=== PATIENT | female | born 1940 | race Caucasian/White ===

== ENCOUNTER → 2018-02-12 | Outpatient (CLI) | payer MEDICARE, BC ==
--- NOTE | 2018-02-13 12:04 | MM ---
Reason for exam: screening (asymptomatic). Last mammogram was performed 1 year and 7 months ago. History: Patient is postmenopausal. Physical Findings: A clinical breast exam by your physician is recommended on an annual basis and results should be correlated with mammographic findings. MG Screening Mammo w CAD Bilateral CC and MLO view(s) were taken. Prior study comparison: July 29, 2016, bilateral MG 3d screening mammo w/cad. July 13, 2015, bilateral MG screening mammo w CAD. There are scattered fibroglandular densities. No significant changes when compared with prior studies. ASSESSMENT: Benign, BI-RAD 2 RECOMMENDATION: Routine screening mammogram of both breasts in 1 year.
== END | disposition home or self-care (01) ==
LOC: RADMAMWWP 09:18
PROVIDERS: ATTEND General Practice
DX: Z12.31 Encounter for screening mammogram for malignant neoplasm of breast (principal)
CPT/HCPCS: 77067

== ENCOUNTER → 2019-03-25 | Outpatient (CLI) | payer MEDICARE, BC ==
--- NOTE | 2019-03-25 10:38 | BD ---
EXAMINATION TYPE: Axial Bone Density DATE OF EXAM: 03/25/2019 COMPARISON: 2014 CLINICAL HISTORY: Postmenopausal female Height: 62.5 Weight: 120 FRAX RISK QUESTIONS: Alcohol (3 or more units per day): no Family History (Parent hip fracture): yes, father Glucocorticoids (More than 3mos): no (Ex: prednisone, prednisolone, methylprednisolone, dexamethasone, and hydrocortisone). History of Fracture in Adulthood: no Secondary Osteoporosis: 1. Type 1 Diabetes: no 2. Hyperthyroidism: no 3. Menopause before 45: no 4. Malnutrition: no 5. Chronic liver disease: no Rheumatoid Arthritis: no Current Tobacco Use: no RISK FACTORS HISTORY OF: Family History of Osteoporosis: unsure Active: yes Diet low in dairy products/other sources of calcium: no Postmenopausal woman: yes Take estrogen and/or progesterone medications: no Lost more than 2 inches in height since high school: no Frequent falls: no Poor Health: no Hyperparathyroidism: no Adrenal Insufficiency: no MEDICATIONS: Prednisone or other steroids: no Thyroid Medications: yes Which medication: Synthroid How Long: about 10 years Osteoporosis Medications: no Which medication: Fosamax How Long: stopped about 2010 Additional Medications: calcium with Vitamin D Additional History: EXAM MEASUREMENTS: Bone mineral densitometry was performed using the [employer] System. Bone mineral density as measured about the Lumbar spine is: ----- L1-L4(G/cm2): 0.850 T Score Values are as follows: ----- L2: -3.2 ----- L3: -2.9 ----- L4: -2.5 ----- L1-L4: -2.7 Bone mineral density has: Decreased -8.1% since study of: 07/13/2015 Bone mineral density about the R hip (g/cm2): 0.691 Bone mineral density about the L hip (g/cm2): 0.681 T Score values are as follows: -----R Neck: -2.5 -----L Neck: -2.6 -----R Total: -2.8 -----L Total: -2.7 Bone mineral density has: Decreased -4.9% since study of: 07/13/2015 IMPRESSION: Osteoporosis (T Score less than -2.5). There is increased fracture risk and therapy is usually indicated based on age. Re-Screen 1-2 years. NOTE: T-SCORE=SD OF THE YOUNG ADULT MEAN.
--- NOTE | 2019-03-26 10:14 | MM ---
Reason for exam: screening (asymptomatic). Last mammogram was performed 1 year and 1 month ago. History: Patient is postmenopausal. Physical Findings: A clinical breast exam by your physician is recommended on an annual basis and results should be correlated with mammographic findings. MG 3D Screening Mammo W/Cad Bilateral CC and MLO view(s) were taken. Prior study comparison: February 12, 2018, bilateral MG screening mammo w CAD. July 29, 2016, bilateral MG 3d screening mammo w/cad. There are scattered fibroglandular densities. There are benign appearing round vascular calcifications bilaterally. There is no discrete abnormality. ASSESSMENT: Benign, BI-RAD 2 RECOMMENDATION: Routine screening mammogram of both breasts in 1 year.
== END | disposition home or self-care (01) ==
LOC: RADMAMWWP 07:06
PROVIDERS: ATTEND General Practice
DX: Z12.31 Encounter for screening mammogram for malignant neoplasm of breast (principal); M81.0 Age-related osteoporosis without current pathological fracture
CPT/HCPCS: 77063; 77067; 77080

== ENCOUNTER → 2020-06-11 | Outpatient (CLI) | payer MEDICARE, BC ==
--- NOTE | 2020-06-12 12:19 | MM ---
Reason for exam: screening (asymptomatic). Last mammogram was performed 1 year and 3 months ago. History: Patient is postmenopausal. Physical Findings: A clinical breast exam by your physician is recommended on an annual basis and results should be correlated with mammographic findings. MG 3D Screening Mammo W/Cad Bilateral CC and MLO view(s) were taken. Prior study comparison: March 25, 2019, bilateral MG 3d screening mammo w/cad. February 12, 2018, bilateral MG screening mammo w CAD. The breast tissue is heterogeneously dense. This may lower the sensitivity of mammography. There are benign appearing round vascular calcifications bilaterally. There is no discrete abnormality. ASSESSMENT: Benign, BI-RAD 2 RECOMMENDATION: Routine screening mammogram of both breasts in 1 year.
== END | disposition home or self-care (01) ==
LOC: RADMAMWWP 13:13
PROVIDERS: ATTEND General Practice
DX: Z12.31 Encounter for screening mammogram for malignant neoplasm of breast (principal)
CPT/HCPCS: 77063; 77067

== ENCOUNTER → 2021-06-15 | Outpatient (CLI) | payer MEDICARE, BC ==
--- NOTE | 2021-06-16 07:56 | MM ---
Reason for exam: screening (asymptomatic). Last mammogram was performed 1 year ago. History: Patient is postmenopausal. Physical Findings: A clinical breast exam by your physician is recommended on an annual basis and results should be correlated with mammographic findings. MG 3D Screening Mammo W/Cad Bilateral CC and MLO view(s) were taken. Prior study comparison: June 11, 2020, bilateral MG 3d screening mammo w/cad. March 25, 2019, bilateral MG 3d screening mammo w/cad. There are scattered fibroglandular densities. There are benign appearing round vascular calcifications bilaterally. There is no discrete abnormality. ASSESSMENT: Benign, BI-RAD 2 RECOMMENDATION: Routine screening mammogram of both breasts in 1 year.
== END | disposition home or self-care (01) ==
LOC: RADMAMWWP 10:57
PROVIDERS: ATTEND General Practice
DX: Z12.31 Encounter for screening mammogram for malignant neoplasm of breast (principal)
CPT/HCPCS: 77063; 77067

== ENCOUNTER → 2022-06-20 | Outpatient (CLI) | payer MEDICARE, BC ==
--- NOTE | 2022-06-20 10:33 | MM ---
Reason for Exam: Screening (asymptomatic). Last screening mammogram was performed 12 month(s) ago. Patient History: Menarche at age 16. First Full-Term at age 20. Postmenopausal. Risk Values: Kaylene 5 year model risk: 1.1%. NCI Lifetime model risk: 1.5%. Prior Study Comparison: 07/29/2016 Bilateral Screening Mammogram, [facility]. 02/12/2018 Bilateral Screening Mammogram, [facility]. 03/25/2019 Bilateral Screening Mammogram, [facility]. 06/11/2020 Bilateral Screening Mammogram, [facility]. 06/15/2021 Bilateral Screening Mammogram, [facility]. Tissue Density: There are scattered fibroglandular densities. Findings: Analyzed By CAD. No suspicious groups of microcalcifications, spiculated or lobular masses, architectural distortion or other secondary signs of malignancy are mammographically apparent. Overall Assessment: Benign, BI-RAD 2 Management: Screening Mammogram of both breasts in 1 year. A negative mammogram report should not preclude additional follow up of suspicious palpable abnormalities. Patient should continue monthly self breast exam. A clinical breast exam by your physician is recommended on an annual basis and results should be correlated with mammographic findings. Electronically signed and approved by: Jeovany Shen D.O. Radiologis
== END | disposition home or self-care (01) ==
LOC: RADMAMWWP 06:54
PROVIDERS: ATTEND Family Medicine
DX: Z12.31 Encounter for screening mammogram for malignant neoplasm of breast (principal)
CPT/HCPCS: 77063; 77067

== ENCOUNTER → 2023-06-21 | Outpatient (CLI) | payer MEDICARE, BC ==
--- NOTE | 2023-06-22 10:59 | MM ---
Reason for Exam: Screening (asymptomatic). Last screening mammogram was performed 12 month(s) ago. Patient History: Menarche at age 16. First Full-Term at age 20. Postmenopausal. Risk Values: Kaylene 5 year model risk: 1.0%. NCI Lifetime model risk: 1.4%. Prior Study Comparison: 06/11/2020 Bilateral Screening Mammogram, [facility]. 06/15/2021 Bilateral Screening Mammogram, [facility]. 06/20/2022 Bilateral MG 3D screening mammo w/cad, [facility]. Tissue Density: The breast tissue is heterogeneously dense. This may lower the sensitivity of mammography. Findings: Analyzed By CAD. There is no suspicious group of microcalcifications or new suspicious mass in either breast. Overall Assessment: Benign, BI-RAD 2 Management: Screening Mammogram of both breasts in 1 year. . Patient should continue monthly self-breast exams. A clinical breast exam by your physician is recommended on an annual basis. This exam should not preclude additional follow-up of suspicious palpable abnormalities. Note on Kaylene scores and lifetime risk: 1. A Kaylene score greater than 3% is considered moderate risk. If this is the case, consider specialist referral to assess eligibility for a risk reducing agent. 2. If overall lifetime risk for the development of breast cancer is 20% or higher, the patient may qualify for future screening with alternating mammogram and breast MRI. Electronically signed and approved by: Jad Waters M.D. Radiologis
== END | disposition home or self-care (01) ==
LOC: RADMAMWWP 09:42
PROVIDERS: ATTEND Family Medicine
DX: Z12.31 Encounter for screening mammogram for malignant neoplasm of breast (principal); Z78.0 Asymptomatic menopausal state
CPT/HCPCS: 77063; 77067

== ENCOUNTER 2024-01-08 21:06 | Observation (INO) | payer MEDICARE, BC ==
--- NOTE | 2024-01-08 21:16 | ED ---
Arrhythmia/Palpitations HPI - General Source: patient, family, RN notes reviewed Mode of arrival: ambulatory Limitations: no limitations <Nancy Zavaleta - Last Filed: 01/08/24 21:15> <Brianna Parrish - Last Filed: 01/13/24 07:44> - General Stated Complaint: Weakness Time Seen by Provider: 01/08/24 21:15 - History of Present Illness Initial Comments: 83-year-old female presenting to the ER with a chief complaint of a racing heart rate. She states this been going on for a couple of weeks and has increased tonight. She states she took her pulse and was was found to be 180 bpm. She denies any chest pain. She does report mild shortness of breath and lightheadedness. No history of atrial fibrillation. Denies any peripheral edema. (Nancy Zavaleta) 83-year-old female who presents to the emergency department with elevated heart rate. States that she used a pulse ox at home and noted that her heart rate was high. States it was around 180. She denies any chest pain. No history of irregular heart rhythms. Does have mild shortness of breath. No lower extremity edema. No history of coronary disease. Patient does not take any blood thinners. States that her blood pressure was normal at home. No other alleviating, precipitating modifying factors (Brianna Parrish) - Related Data Home Medications Medication Instructions Recorded Confirmed Levothyroxine Sodium [Synthroid] 150 mcg PO QAM 05/18/16 01/09/24 Vit C/E/Zn/Coppr/Lutein/Zeaxan 2 cap PO DAILY 05/18/16 01/09/24 [Preservision Areds 2 Softgel] Cholecalciferol [Vitamin D3 (25 25 mcg PO DAILY 01/09/24 01/09/24 Mcg = 1000 Iu)] Cyanocobalamin (Vitamin B-12) 1,000 mcg PO DAILY 01/09/24 01/09/24 [Vitamin B-12] Ferrous Sulfate [Iron (65 MG 325 mg PO DAILY 01/09/24 01/09/24 Elemental)] Folic Acid 1 mg PO DAILY 01/09/24 01/09/24 Losartan [Cozaar] 25 mg PO DAILY 01/09/24 01/09/24 Multivit with Calcium,Iron,Min 1 tab PO DAILY 01/09/24 01/09/24 [Women's Multivitamin] predniSONE [Deltasone] 20 mg PO DAILY 01/09/24 01/09/24 Previous Rx's Medication Instructions Recorded Apixaban [Eliquis] 2.5 mg PO BID #60 tab 01/10/24 Metoprolol Tartrate [Lopressor] 50 mg PO BID #60 tab 01/10/24 Pantoprazole [Protonix] 40 mg PO AC-BRKFST #30 tab 01/10/24 Allergies Allergy/AdvReac Type Severity Reaction Status Date / Time No Known Allergies Allergy Verified 01/09/24 07:42 Review of Systems ROS Other: All systems not noted in ROS Statement are negative. <Nancy Zavaleta - Last Filed: 01/08/24 21:15> ROS Other: All systems not noted in ROS Statement are negative. <Brianna Parrish - Last Filed: 01/13/24 07:44> ROS Statement: Those systems with pertinent positive or pertinent negative responses have been documented in the HPI. Past Medical History Past Medical History: Thyroid Disorder History of Any Multi-Drug Resistant Organisms: None Reported Additional Past Surgical History / Comment(s): COLONOSCOPY Additional Past Anesthesia/Blood Transfusion Reaction / Comment(s): HAS NEVER HAD GENERAL ANESTHESIA. Past Alcohol Use History: Occasional Past Drug Use History: None Reported <Nancy Zavaleta - Last Filed: 01/08/24 21:15> General Exam <Nancy Zavaleta - Last Filed: 01/08/24 21:15> General appearance: alert, in no apparent distress Head exam: Present: atraumatic, normocephalic, normal inspection Eye exam: Present: normal appearance, PERRL, EOMI. Absent: scleral icterus, conjunctival injection, periorbital swelling ENT exam: Present: normal exam, mucous membranes moist Neck exam: Present: normal inspection. Absent: tenderness, meningismus, lymphadenopathy Respiratory exam: Present: normal lung sounds bilaterally. Absent: respiratory distress, wheezes, rales, rhonchi, stridor Cardiovascular Exam: Present: tachycardia, irregular rhythm, normal heart sound s. Absent: systolic murmur, diastolic murmur, rubs, gallop, clicks GI/Abdominal exam: Present: soft, normal bowel sounds. Absent: distended, tenderness, guarding, rebound, rigid Extremities exam: Present: normal inspection, full ROM, normal capillary refill. Absent: tenderness, pedal edema, joint swelling, calf tenderness Back exam: Present: normal inspection Neurological exam: Present: alert, oriented X3, CN II-XII intact Psychiatric exam: Present: normal affect, normal mood Skin exam: Present: warm, dry, intact, normal color. Absent: rash <Brianna Parrish - Last Filed: 01/13/24 07:44> - General Exam Comments Initial Comments: Visual Physical Exam Vital signs reviewed General: Well-appearing, nontoxic, no acute distress. Head: Normocephalic, atraumatic Eyes: PERRLA, EOMI ENT: Airway patent Chest: Nonlabored breathing Skin: No visual rash, normal skin tone Neuro: Alert and oriented 3 Musculoskeletal: No gross abnormalities (Nancy Zavaleta) Course Vital Signs 01/08/24 01/09/24 01/09/24 21:17 00:29 01:31 Temperature 98 F Pulse Rate 121 H 147 H 89 Respiratory 16 18 18 Rate Blood Pressure 109/80 125/108 127/102 O2 Sat by Pulse 96 97 94 L Oximetry 01/09/24 01/09/24 01/09/24 06:34 07:10 07:45 Temperature 98.3 F Pulse Rate 97 84 Respiratory 16 18 16 Rate Blood Pressure 111/79 122/97 127/93 O2 Sat by Pulse 95 95 94 L Oximetry 01/09/24 01/09/24 01/09/24 08:00 09:01 10:01 Temperature 98.4 F 98.3 F Pulse Rate 68 91 80 Respiratory 18 17 17 Rate Blood Pressure 137/87 129/84 133/83 O2 Sat by Pulse 94 L 93 L 93 L Oximetry Medical Decision Making <Nancy Zavaleta - Last Filed: 01/08/24 21:15> - Lab Data Result diagrams: 01/10/24 07:40 01/10/24 07:40 <Brianna Parrish - Last Filed: 01/13/24 07:44> - Medical Decision Making I performed the quick note portion of this chart. Electronically signed by Nancy Zavaleta PA-C (Nancy Zavaleta) Was pt. sent in by a medical professional or institution (CODIE Dickerson, PRINTING SPECIALIST, urgent care, hospital, or [facility]...) When possible be specific @ -No Did you speak to anyone other than the patient for history (EMS, parent, family, police, friend...)? What history was obtained from this source @ -No Did you review nursing and triage notes (agree or disagree)? Why? @ -I reviewed and agree with nursing and triage notes Were old charts reviewed (outside hosp., previous admission, EMS record, old EKG, old radiological studies, urgent care reports/EKG's, [facility] records)? Report findings @ -No old charts were reviewed Differential Diagnosis (chest pain, altered mental status, abdominal pain women, abdominal pain men, vaginal bleeding, weakness, fever, dyspnea, syncope, headache, dizziness, GI bleed, back pain, seizure, CVA, palpatations, mental health, musculoskeletal)? @ -Differential Palpitations Ventricular arrhythmias, atrial arrhythmias, myocardial infarction, anemia, thyrotoxicosis, electrolyte imbalance, hypokalemia, pulmonary embolism, pulmonary disease, drugs, alcohol, anxiety, stress.... This is not meant to be an all-inclusive list. EKG interpreted by me (3pts min.). @ -EKG demonstrates A-fib with a rate of 114. QRS 86. QTc of 365. No acute ST segment elevations or depressions X-rays interpreted by me (1pt min.). @ -Yes and demonstrates no acute process CT interpreted by me (1pt min.). @ -None done U/S interpreted by me (1pt. min.). @ -None done What testing was considered but not performed or refused? (CT, X-rays, U/S, labs)? Why? @ -None What meds were considered but not given or refused? Why? @ -None Did you discuss the management of the patient with other professionals (professionals i.e. , PA, PRINTING SPECIALIST, lab, RT, psych nurse, mental health social worker, glass driller, teacher, information assurance officer, outpatient case manager)? Give summary @ -Spoke with Kellie from [facility] Was smoking cessation discussed for >3mins.? @ -No Was critical care preformed (if so, how long)? @ -Yes, 40 minutes for management of rapid A-fib Were there social determinants of health that impacted care today? How? (Homeles sness, low income, unemployed, alcoholism, drug addiction, transportation, low edu. Level, literacy, decrease access to med. care, snf, rehab)? @ -No Was there de-escalation of care discussed even if they declined (Discuss DNR or withdrawal of care, Hospice)? DNR status @ -No What co-morbidities impacted this encounter? (DM, HTN, Smoking, COPD, CAD, Cancer, CVA, ARF, Chemo, Hep., AIDS, mental health diagnosis, sleep apnea, morbid obesity)? @ -None Was patient admitted / discharged? Hospital course, mention meds given and route, prescriptions, significant lab abnormalities, going to OR and other pertinent info. @ -Upon arrival patient was seen and evaluated in room 4. Thorough history and physical exam was performed. She was placed on continuous pulse ox and cardiac monitoring. Twelve-lead EKG is obtained which demonstrates A-fib with a rapid rate. Patient has no history of this. Laboratory studies are conducted. She is initiated on a Cardizem drip. Patient is additionally heparinized that she has no contraindications. Patient will be admitted for new onset A-fib for whic h she was agreeable. Patient admitted to [place] who agreed to admission with cardiology to consult Undiagnosed new problem with uncertain prognosis? @ -No Drug Therapy requiring intensive monitoring for toxicity (Heparin, Nitro, Insulin, Cardizem)? @ -No Were any procedures done? @ -No Diagnosis/symptom? @ -Acute palpitations, new onset A-fib Acute, or Chronic, or Acute on Chronic? @ -Acute Uncomplicated (without systemic symptoms) or Complicated (systemic symptoms)? @ -Complicated Side effects of treatment? @ -No Exacerbation, Progression, or Severe Exacerbation? @ -No Poses a threat to life or bodily function? How? (Chest pain, [place], [place], pneumonia, PE, COPD, DKA, ARF, appy, cholecystitis, CVA, Diverticulitis, Homicidal, Suicidal, threat to staff... and all critical care pts) @ -Yes as patient arrives with rapid ventricular rate (Brianna Parrish) - Lab Data Lab Results 01/08/24 01/08/24 01/08/24 Range/Units 23:14 23:14 23:14 WBC 13.4 H (3.8-10.6) k/uL RBC 4.66 (3.80-5.40) m/uL Hgb 14.1 (11.4-16.0) gm/dL Hct 44.3 (34.0-46.0) % MCV 95.1 (80.0-100.0) fL MCH 30.4 (25.0-35.0) pg MCHC 31.9 (31.0-37.0) g/dL RDW 14.0 (11.5-15.5) % Plt Count 339 (150-450) k/uL MPV 8.3 Neutrophils % 81 % Lymphocytes % 10 % Monocytes % 7 % Eosinophils % 1 % Basophils % 0 % Neutrophils # 10.8 H (1.3-7.7) k/uL Lymphocytes # 1.3 (1.0-4.8) k/uL Monocytes # 1.0 (0-1.0) k/uL Eosinophils # 0.1 (0-0.7) k/uL Basophils # 0.0 (0-0.2) k/uL PT 10.8 (10.0-12.5) sec INR 1.0 (<1.2) APTT 24.9 (22.0-30.0) sec Sodium 143 (137-145) mmol/L Potassium 4.2 (3.5-5.1) mmol/L Chloride 115 H (98-107) mmol/L Carbon Dioxide 16 L (22-30) mmol/L Anion Gap 12 mmol/L BUN 12 (7-17) mg/dL Creatinine 0.57 (0.52-1.04) mg/dL Est GFR (CKD-EPI)AfAm >90 (>60 ml/min/1.73 sqM) Est GFR (CKD-EPI)NonAf 87 (>60 ml/min/1.73 sqM) Glucose 122 H (74-99) mg/dL Calcium 8.6 (8.4-10.2) mg/dL Magnesium 2.1 (1.6-2.3) mg/dL Total Bilirubin 0.3 (0.2-1.3) mg/dL AST 27 (14-36) U/L ALT 23 (4-34) U/L Alkaline Phosphatase 98 (38-126) U/L Troponin I (0.000-0.034) ng/mL Total Protein 7.0 (6.3-8.2) g/dL Albumin 3.7 (3.5-5.0) g/dL TSH (0.465-4.680) mIU/L 01/08/24 01/08/24 Range/Units 23:14 23:14 WBC (3.8-10.6) k/uL RBC (3.80-5.40) m/uL Hgb (11.4-16.0) gm/dL Hct (34.0-46.0) % MCV (80.0-100.0) fL MCH (25.0-35.0) pg MCHC (31.0-37.0) g/dL RDW (11.5-15.5) % Plt Count (150-450) k/uL MPV Neutrophils % % Lymphocytes % % Monocytes % % Eosinophils % % Basophils % % Neutrophils # (1.3-7.7) k/uL Lymphocytes # (1.0-4.8) k/uL Monocytes # (0-1.0) k/uL Eosinophils # (0-0.7) k/uL Basophils # (0-0.2) k/uL PT (10.0-12.5) sec INR (<1.2) APTT (22.0-30.0) sec Sodium (137-145) mmol/L Potassium (3.5-5.1) mmol/L Chloride (98-107) mmol/L Carbon Dioxide (22-30) mmol/L Anion Gap mmol/L BUN (7-17) mg/dL Creatinine (0.52-1.04) mg/dL Est GFR (CKD-EPI)AfAm (>60 ml/min/1.73 sqM) Est GFR (CKD-EPI)NonAf (>60 ml/min/1.73 sqM) Glucose (74-99) mg/dL Calcium (8.4-10.2) mg/dL Magnesium (1.6-2.3) mg/dL Total Bilirubin (0.2-1.3) mg/dL AST (14-36) U/L ALT (4-34) U/L Alkaline Phosphatase (38-126) U/L Troponin I 0.055 H* (0.000-0.034) ng/mL Total Protein (6.3-8.2) g/dL Albumin (3.5-5.0) g/dL TSH 4.050 (0.465-4.680) mIU/L Disposition <Nancy Zavaleta - Last Filed: 01/08/24 21:15> Is patient prescribed a controlled substance at d/c from ED?: No Time of Disposition: 00:57 Decision to Admit Reason: Admit from EC Decision Date: 01/09/24 Decision Time: 00:57 <Brianna Parrish - Last Filed: 01/13/24 07:44> Clinical Impression: New onset a-fib, Elevated troponin Disposition: ADMITTED IP TO THIS HOSP Condition: Stable
--- NOTE | 2024-01-08 21:47 | XR ---
EXAMINATION TYPE: XR chest 2V DATE OF EXAM: 01/08/2024 9:35 PM CLINICAL INDICATION:Female, 83 years old with history of Chest Pain; [facility] COMPARISON: Chest radiographs from 01/08/2024 TECHNIQUE: XR chest 2V Frontal and lateral views of the chest. FINDINGS: Lungs/Pleura: Right lower lobe airspace opacities. There is no evidence of pleural effusion, left foc al consolidation, or pneumothorax. Pulmonary vascularity: Unremarkable. Heart/mediastinum: Cardiomediastinal silhouette is unremarkable. Musculoskeletal: No acute osseous pathology. IMPRESSION: Right lower lobe airspace opacities correlate for developing pneumonia.
[2024-01-08 23:22] LABS: Basophils % (A) 0 %; Eosinophils # (A) 0.1 k/uL (0-0.7); Eosinophils % (A) 1 %; HCT 44.3 % (34.0-46.0); HGB 14.1 gm/dL (11.4-16.0); Lymphocytes # (A) 1.3 k/uL (1.0-4.8); Lymphocytes % (A) 10 %; MCH 30.4 pg (25.0-35.0); MCHC 31.9 g/dL (31.0-37.0); MCV 95.1 fL (80.0-100.0); Mean Platelet Volume 8.3; Monocytes % (A) 7 %; Neutrophils # (A) 10.8 k/uL (1.3-7.7); Neutrophils % (A) 81 %; Platelet Count 339 k/uL (150-450); RBC 4.66 m/uL (3.80-5.40); WBC 13.4 k/uL (3.8-10.6)
[2024-01-08 23:30] LABS: ALT 23 U/L (4-34); AST 27 U/L (14-36); African American GFR (CKD) >90 (>60 ml/min/1.73 sqM); Albumin 3.7 g/dL (3.5-5.0); Alkaline Phosphatase 98 U/L (38-126); Anion Gap 12 mmol/L; Blood Urea Nitrogen 12 mg/dL (7-17); Calcium 8.6 mg/dL (8.4-10.2); Carbon Dioxide 16 mmol/L (22-30); Chloride 115 mmol/L (98-107); Glucose 122 mg/dL (74-99); Magnesium 2.1 mg/dL (1.6-2.3); Non-African American GFR(CKD) 87 (>60 ml/min/1.73 sqM); Potassium 4.2 mmol/L (3.5-5.1); Sodium 143 mmol/L (137-145); Total Bilirubin 0.3 mg/dL (0.2-1.3)
[2024-01-08 23:37] LABS: Partial Thromboplastin Time 24.9 sec (22.0-30.0); Prothrombin Time 10.8 sec (10.0-12.5)
[2024-01-09] MEDS ORDERED: NALOXONE 0.4 MG/ML 1 ML VIAL IV PRN (00:57)
[2024-01-09] MEDS ORDERED: HEPARIN SODIUM 1,000 UN/ML (10ML VL) IV PRN (01:01)
[2024-01-09] MEDS: DILTIAZEM 125 MG in SODIUM CHLORIDE 0.9% 100 ML IV SCH (01:16)
[2024-01-09] MEDS: DILTIAZEM DRIP BOLUS FROM BAG 1 MG SOLN IV ONE (01:18)
[2024-01-09] MEDS: HEPARIN SOD,PORK IN 0.45% NACL 25,000 UNIT in 0.45% NACL 1 250ML.BAG IV SCH (01:20)
[2024-01-09] MEDS: HEPARIN SODIUM 1,000 UN/ML (10ML VL) IV ONE (01:26)
[2024-01-09] MEDS: ASPIRIN 81 MG PO STA (01:28)
[2024-01-09 03:11] LABS: Appearance,Urine Clear (Clear); Bilirubin,Urine Negative (Negative); Blood,Urine Trace (Negative); Color,Urine Colorless; Glucose,Urine (UA) Negative (Negative); Ketones,Urine Negative (Negative); Leukocyte Esterase,Urine Negative (Negative); Mucus,Urine Rare /hpf; Nitrite,Urine Negative (Negative); PH, Urine 5.5 (5.0-8.0); Protein,Urine Negative (Negative); RBC,Urine 1 /hpf (0-5); Specific Gravity,Urine 1.006 (1.001-1.035); Squamous Epithelial Cell,Urine <1 /hpf (0-4); Urobilinogen,Urine <2.0 mg/dL (<2.0)
[2024-01-09] MEDS ORDERED: NITROGLYCERIN SL TABS 0.4 MG TAB SUBLINGUAL PRN (08:35)
[2024-01-09] MEDS ORDERED: ALPRAZolam 0.25 MG TAB PO PRN (08:35)
[2024-01-09] MEDS ORDERED: ALPRAZolam 0.5 MG TAB PO PRN (08:35)
[2024-01-09] MEDS: ATORVASTATIN 80 MG TAB PO STA ×2 (08:51→09:00)
[2024-01-09] MEDS: ASPIRIN 325 MG TAB PO STA (08:51)
[2024-01-09] MEDS: SODIUM CHLORIDE 0.9% 1,000 ML IV SCH ×2 (08:53→16:52)
[2024-01-09] MEDS: METOPROLOL TARTRATE 25 MG TAB PO SCH (09:00)
[2024-01-09] MEDS ORDERED: HEPARIN SODIUM 1,000 UN/ML (10ML VL) ONE (10:15)
[2024-01-09] MEDS ORDERED: LIDOCAINE 1% INJ 10MG/ML (20 ML MDV) ONE (10:16)
[2024-01-09] MEDS ORDERED: VERAPAMIL 2.5 MG/ML 2 ML AMP ONE (10:16)
[2024-01-09] MEDS ORDERED: fentaNYL (PF) 50 MCG/ML 2 ML AMP ONE (10:16)
--- NOTE | 2024-01-09 10:22 | P.CRDCN ---
History of Present Illness History of present illness: HISTORY OF PRESENT ILLNESS: This is a 83-year-old female with a past medical history significant for bronchitis, hypertension, and hypothyroidism. 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 We have been asked to see the patient in consultation for new onset atrial fibrillation and elevated troponins. Patient examined at the bedside in the emergency room. Patient states that she had bronchitis about 2 weeks ago. She states that she recently went to her PCP and was prescribed ster oids and antibiotics as she felt her bronchitis was not getting better. She states that she still has a cough but no fever. She states that yesterday she just overall felt unwell. She reports feeling weak. She denied having any chest pain or pressure. She reports feeling palpitations yesterday for the first time. She states she did not feel dizzy or lightheaded. The patient presented to the hospital for further evaluation. The patient was found to be in new onset atrial fibrillation with RVR. The patient denies a history of atrial fibrillation. The patient was started on IV heparin and IV Cardizem. At the time of examination, the patient remains in atrial fibrillation with control led ventricular rate. DIAGNOSTICS: - EKG reveals A-fib with RVR. - Chest xray right lower lobe airspace opacities correlate for developing pneumonia. - Laboratory data: WBC 13.4. Hemoglobin 14.1. Platelet count 339. Sodium 143. Potassium 4.2. BUN 12. Creatinine 0.57. Magnesium 2.1. Troponin 0.055. 0.073. 0.067. TSH 4.050. - Current home cardiac medications include losartan 25 mg daily. - No previous echocardiogram, stress test, or cardiac catheterization available in EMR for review REVIEW OF SYSTEMS: At the time of my exam: CONSTITUTIONAL: Denies fever or chills. HEENT: Denies blurred vision, vision changes, or eye pain. Denies hemoptysis CARDIOVASCULAR: Denies chest pain. Denies orthopnea. Denies PND. Denies palpitations RESPIRATORY: Denies shortness of breath. GASTROINTESTINAL: Denies abdominal pain. Denies nausea or vomiting. HEMATOLOGIC: Denies bleeding disorders. GENITOURINARY: Denies any blood in urine. SKIN: Denies pruitis. Denies rash. PHYSICAL EXAM: VITAL SIGNS: Reviewed. GENERAL: Well-developed in no acute distress. HEENT: Head is normocephalic. Pupils are equal, round. Sclerae anicteric. Mucous membranes of the mouth are moist. Neck supple. No JVD or thyromegaly LUNGS: Respirations even and unlabored. Lungs essentially clear to auscultation bilaterally. HEART: Irregular rate and rhythm. S1 and S2 heard. ABDOMEN: Soft. Nondistended. Nontender. EXTREMITIES: Normal range of motion. No clubbing or cyanosis. Peripheral pulses intact. No lower extremity edema NEUROLOGIC: Awake and alert. Oriented x 3. ASSESSMENT: Recent diagnosis of bronchitis Right lower lobe opacity, possible pneumonia New onset atrial fibrillation with RVR Elevated troponins, flat, may be secondary to A-fib with RVR, rule out underlying CAD Hypertension Hypothyroidism PLAN: Obtain 2D echo to assess cardiac structure and function TSH checked and within normal limits Add metoprolol 25 mg twice a day Discontinue IV Cardizem Continue IV heparin Recommend cardiac catheterization secondary to elevated troponins. Patient is agreeable. Patient will undergo cardiac catheterization today with Dr. Vargas Patient will need to be transition to oral anticoagulation postcardiac catheterization Further recommendations pending patient course Nurse practitioner note has been reviewed by physician. Signing provider agrees with the documented findings, assessment, and plan of care documented by BASKET MENDER as a scribe. Past Medical History Past Medical History: Thyroid Disorder History of Any Multi-Drug Resistant Organisms: None Reported Additional Past Surgical History / Comment(s): COLONOSCOPY Additional Past Anesthesia/Blood Transfusion Reaction / Comment(s): HAS NEVER HAD GENERAL ANESTHESIA. Smoking Status: Never smoker Past Alcohol Use History: Occasional Past Drug Use History: None Reported Medications and Allergies Home Medications Medication Instructions Recorded Confirmed Type Levothyroxine Sodium [Synthroid] 150 mcg PO QAM 05/18/16 01/09/24 History Vit C/E/Zn/Coppr/Lutein/Zeaxan 2 cap PO DAILY 05/18/16 01/09/24 History [Preservision Areds 2 Softgel] Azithromycin [Zithromax Z Pack] See Taper PO DIRECTED 01/09/24 01/09/24 History Cholecalciferol [Vitamin D3 (25 25 mcg PO DAILY 01/09/24 01/09/24 History Mcg = 1000 Iu)] Cyanocobalamin (Vitamin B-12) 1,000 mcg PO DAILY 01/09/24 01/09/24 History [Vitamin B-12] Ferrous Sulfate [Feosol] 325 mg PO DAILY 01/09/24 01/09/24 History Folic Acid 1 mg PO DAILY 01/09/24 01/09/24 History Losartan [Cozaar] 25 mg PO DAILY 01/09/24 01/09/24 History Multivit with Calcium,Iron,Min 1 tab PO DAILY 01/09/24 01/09/24 History [Women's Multivitamin] predniSONE [Deltasone] 20 mg PO DAILY 01/09/24 01/09/24 History Allergies Allergy/AdvReac Type Severity Reaction Status Date / Time No Known Allergies Allergy Verified 01/09/24 07:42 Physical Exam Vitals: Vital Signs Temp Pulse Resp BP Pulse Ox 01/09/24 07:45 98.3 F 84 16 127/93 94 L 01/09/24 07:10 18 122/97 95 01/09/24 06:34 97 16 111/79 95 01/09/24 01:31 89 18 127/102 94 L 01/09/24 00:29 147 H 18 125/108 97 01/08/24 21:17 98 F 121 H 16 109/80 96 Intake and Output 01/08/24 01/09/24 01/09/24 22:59 06:59 14:59 Other: Weight 54.431 kg Results 01/08/24 23:14 01/08/24 23:14 Cardiac Enzymes 01/08/24 01/08/24 01/09/24 Range/Units 23:14 23:14 02:55 AST 27 (14-36) U/L Troponin I 0.055 H* 0.073 H* (0.000-0.034) ng/mL Coagulation 01/08/24 Range/Units 23:14 PT 10.8 (10.0-12.5) sec APTT 24.9 (22.0-30.0) sec CBC 01/08/24 Range/Units 23:14 WBC 13.4 H (3.8-10.6) k/uL RBC 4.66 (3.80-5.40) m/uL Hgb 14.1 (11.4-16.0) gm/dL Hct 44.3 (34.0-46.0) % Plt Count 339 (150-450) k/uL Comprehensive Metabolic Panel 01/08/24 Range/Units 23:14 Sodium 143 (137-145) mmol/L Potassium 4.2 (3.5-5.1) mmol/L Chloride 115 H (98-107) mmol/L Carbon Dioxide 16 L (22-30) mmol/L BUN 12 (7-17) mg/dL Creatinine 0.57 (0.52-1.04) mg/dL Glucose 122 H (74-99) mg/dL Calcium 8.6 (8.4-10.2) mg/dL AST 27 (14-36) U/L ALT 23 (4-34) U/L Alkaline Phosphatase 98 (38-126) U/L Total Protein 7.0 (6.3-8.2) g/dL Albumin 3.7 (3.5-5.0) g/dL Current Medications Generic Name Dose Route Start Last Admin Trade Name Freq PRN Reason Stop Dose Admin Heparin Sodium (Porcine) 0 unit 01/09/24 01:01 Heparin Sodium 1,000 Un/Ml (10ml Vl) IV PER PROTOCOL PRN Low PTT Protocol Heparin Sodium/Sodium Chloride 250 mls @ 6.532 mls/hr 01/09/24 01:15 01/09/24 01:20 25,000 unit/ Sodium Chloride IV 12 units/kg/hr .Q24H MARILEE 6.532 mls/hr Administration Protocol 12 UNITS/KG/HR Diltiazem HCl 125 mg/ Sodium 125 mls @ 5 mls/hr 01/09/24 01:15 01/09/24 01:16 Chloride IV 5 mg/hr .Q24H MARILEE 5 mls/hr Administration 5 MG/HR Naloxone HCl 0.2 mg 01/09/24 00:57 Naloxone 0.4 Mg/Ml 1 Ml Vial IV Q2M PRN Opioid Reversal Intake and Output 01/08/24 01/09/24 01/09/24 22:59 06:59 14:59 Other: Weight 54.431 kg 01/08/24 23:14 01/08/24 23:14
[2024-01-09] MEDS: LIDOCAINE 1% INJ 10MG/ML (20 ML MDV) SQ ONE (10:40)
[2024-01-09] MEDS: fentaNYL (PF) 50 MCG/1 ML VIAL IVP ONE (10:40)
[2024-01-09] MEDS: VERAPAMIL SYRINGE (5 MG/10 ML) INTRAARTER ONE (10:43)
[2024-01-09] MEDS: HEPARIN SODIUM 1,000 UN/ML (10ML VL) IVP ONE (10:47)
[2024-01-09] MEDS: SODIUM CHLORIDE 0.9% 1,000 ML IV ONE (10:58)
[2024-01-09] MEDS ORDERED: RX INFO: IV CONTRAST WAS GIVEN 1 EACH MISC MISCELLANE PRN (11:03)
--- NOTE | 2024-01-09 11:08 | P.CARDCATH ---
Date of Procedure: 01/09/24 Description of Procedure: Cardiac Catheterization: The patient is an 83-year-old female with a history of hypertension who presented with symptoms of progressive dyspnea, was found to be in atrial fibrillation with rapid ventricular response and had troponin elevation. Recommendations were made regarding cardiac catheterization, the risks and the complications were discussed with the patient who is in full understanding and agreement. Procedure Description: Patient was brought to computer laboratory technician in fasting semi-sedated state after receiving Fentanyl and Benadryl achieiving moderate conscious sedated state. Using Xylocaine Anesthesia and modified Seldinger technique, a 6-Sammarinese sheath was introduced in the right radial artery . Subsequently, selective coronary angiography was performed using a 5-Sammarinese 3.5 bend Fanny catheter. Multiple views of the coronary artery including hemiaxial views were obtained. The right Fanny catheter was used to cross the aortic valve and LVEDP was calculated. Following that, catheter and sheath were removed. Hemostasis was obtained with deployment of vascular band . There was no immediate complication. Patient was returned to room in stable condition. Of note, the patient received a total of 2000 units of intravenous heparin as well as intra-arterial verapamil. Findings: Left main: This is a short size vessel, bifurcating into LAD and left circumflex, left main has no obstructive disease LAD: This is a large size vessel giving rise to a moderately sized diagonal branch in the midsegment. The mid LAD has a 20% plaque, the rest of the vessel has no high-grade stenosis Left circumflex: This is a nondominant vessel, giving rise to a large obtuse marginal branch. The proximal segment of the left circumflex has a 20% plaque, the rest of the vessel has no significant obstructive disease RCA: This is a large dominant vessel, bifurcating distally to PDA and PLV, the right coronary artery and its branches have no evidence of obstructive disease Left Ventriculogram: Not performed Hemodynamics: There was no gradient across aortic valve, LVEDP was 12-14 mmHg Conclusion: 1. Mild obstructive disease in the mid LAD and proximal left circumflex 2. No obstructive disease in the RCA 3. Right dominance 4. Normal LVEDP Recommendations: I have recommended to continue medical therapy and initiate anticoagulation. It is possible that the troponin elevation is secondary to her atrial fibrillation, depending on her symptoms the decision will be made regarding pursuing rhythm versus rate control. The findings and the recommendations were discussed with the patient and the family and they were in full understanding and agreement. Duration of sedation is 11 minutes.
[2024-01-09] MEDS: METOPROLOL TARTRATE 25 MG TAB PO STA ×2 (15:12→16:48)
--- NOTE | 2024-01-09 15:34 | P.HPIM ---
History of Present Illness H&P Date: 01/09/24 This is a pleasant 83-year-old female with medical history significant for hypothyroidism, occasional alcohol use 1 glass of wine here and there. Patient comes into the hospital with complaints of palpitations which started yesterday she is not having any chest pain or shortness of breath. States that she checks her blood pressure and heart rate at home and she is never abnormal however when she began feeling the palpitations she checked her vital signs and noted that her heart rate was 180 at home so she came into the hospital for further evaluation. She was recently treated on an outpatient basis for bronchitis and completed a course of oral azithromycin and oral prednisone. She still has some residual cough but is not having any fever chills and states that the bronchitis is essentially ran its course. She is not having any nausea vomiting or diarrhea and she denies any dizziness or lightheadedness. EKG on admission shows atrial fibrillation with rapid ventricular rate. Patient was admitted to the hospital under medicine with a consult placed to cardiology services. Her troponin level has been elevated at 0.055 and 0.073. Her TSH was normal at 4.050. Her glucose level was 122 she had a mild elevated white count at 13.4 but noted that she has recently been on prednisone this last week. Patient's urinalysis is not suggestive of any infection shows trace blood with rare urine mucus. Has an echocardiogram ordered and will undergo a cardiac catheterization today. REVIEW OF SYSTEMS: CONSTITUTIONAL: No fever, no malaise, no fatigue. HEENT: No recent visual problems or hearing problems. Denied any sore throat. CARDIOVASCULAR: No chest pain, orthopnea, PND, no palpitations, no syncope. PULMONARY: No shortness of breath, no cough, no hemoptysis. GASTROINTESTINAL: No diarrhea, no nausea, no vomiting, no abdominal pain. NEUROLOGICAL: No headaches, no weakness, no numbness. HEMATOLOGICAL: Denies any bleeding or petechiae. GENITOURINARY: Denies any burning micturition, frequency, or urgency. MUSCULOSKELETAL/RHEUMATOLOGICAL: Denies any joint pain, swelling, or any muscle pain. ENDOCRINE: Denies any polyuria or polydipsia. The rest of the 14-point review of systems is negative. PHYSICAL EXAMINATION: GENERAL: The patient is alert and oriented x3, not in any acute distress. Well developed, well nourished. HEENT: Pupils are round and equally reacting to light. EOMI. No scleral icterus. No conjunctival pallor. Normocephalic, atraumatic. No pharyngeal erythema. No thyromegaly. CARDIOVASCULAR: S1 and S2 present. No murmurs, rubs, or gallops. PULMONARY: Chest is clear to auscultation, no wheezing or crackles. ABDOMEN: Soft, nontender, nondistended, normoactive bowel sounds. No palpable organomegaly. MUSCULOSKELETAL: No joint swelling or deformity. EXTREMITIES: No cyanosis, clubbing, or pedal edema. NEUROLOGICAL: Gross neurological examination did not reveal any focal deficits. SKIN: No rashes. Assessment and Plan -New onset atrial fibrillation with rapid ventricular rate patient was initially started on IV Cardizem and has since been discontinued and transitioned to oral metoprolol. Patient is also on IV heparin plans to transition to an oral anticoagulant later on this evening. -Troponin elevation felt to be due to the atrial fibrillation patient underwent cardiac catheterization which reveals mild nonobstructive coronary artery disease and patient will be treated medically for this -Hypothyroidism continues on same home dose of levothyroxine, TSH has been checked and is in normal limits at this time -Recent diagnosis of tracheobronchitis completed course of oral azithromycin and prednisone taper. GI prophylaxis VTE prophylaxis as mentioned patient is on IV heparin with transition to oral Eliquis Full code The impression and plan of care has been dictated by Deanna Storey, Nurse Practitioner as directed. Dr. Gunnar MD I have performed a history and physical examination and medical decision making of this patient, discussed the same with the dictator, and agree with the dictators assessment and plan as written, documented as a scribe. Based on total visit time, I have performed more than 50% of this visit. Past Medical History Past Medical History: Thyroid Disorder History of Any Multi-Drug Resistant Organisms: None Reported Additional Past Surgical History / Comment(s): COLONOSCOPY Additional Past Anesthesia/Blood Transfusion Reaction / Comment(s): HAS NEVER HAD GENERAL ANESTHESIA. Smoking Status: Never smoker Past Alcohol Use History: Occasional Past Drug Use History: None Reported Medications and Allergies Home Medications Medication Instructions Recorded Confirmed Type Levothyroxine Sodium [Synthroid] 150 mcg PO QAM 05/18/16 01/09/24 History Vit C/E/Zn/Coppr/Lutein/Zeaxan 2 cap PO DAILY 05/18/16 01/09/24 History [Preservision Areds 2 Softgel] Azithromycin [Zithromax Z Pack] See Taper PO DIRECTED 01/09/24 01/09/24 History Cholecalciferol [Vitamin D3 (25 25 mcg PO DAILY 01/09/24 01/09/24 History Mcg = 1000 Iu)] Cyanocobalamin (Vitamin B-12) 1,000 mcg PO DAILY 01/09/24 01/09/24 History [Vitamin B-12] Ferrous Sulfate [Feosol] 325 mg PO DAILY 01/09/24 01/09/24 History Folic Acid 1 mg PO DAILY 01/09/24 01/09/24 History Losartan [Cozaar] 25 mg PO DAILY 01/09/24 01/09/24 History Multivit with Calcium,Iron,Min 1 tab PO DAILY 01/09/24 01/09/24 History [Women's Multivitamin] predniSONE [Deltasone] 20 mg PO DAILY 01/09/24 01/09/24 History Allergies Allergy/AdvReac Type Severity Reaction Status Date / Time No Known Allergies Allergy Verified 01/09/24 07:42 Physical Exam Vitals: Vital Signs Temp Pulse Resp BP Pulse Ox 01/09/24 10:01 98.3 F 80 17 133/83 93 L 01/09/24 09:01 98.4 F 91 17 129/84 93 L 01/09/24 08:00 68 18 137/87 94 L 01/09/24 07:45 98.3 F 84 16 127/93 94 L 01/09/24 07:10 18 122/97 95 01/09/24 06:34 97 16 111/79 95 01/09/24 01:31 89 18 127/102 94 L 01/09/24 00:29 147 H 18 125/108 97 01/08/24 21:17 98 F 121 H 16 109/80 96 Intake and Output 01/08/24 01/09/24 01/09/24 22:59 06:59 14:59 Other: Weight 54.431 kg Results CBC & Chem 7: 01/08/24 23:14 01/08/24 23:14 Labs: Abnormal Lab Results - Last 24 Hours (Table) 01/08/24 01/08/24 01/08/24 Range/Units 23:14 23:14 23:14 WBC 13.4 H (3.8-10.6) k/uL Neutrophils # 10.8 H (1.3-7.7) k/uL APTT (22.0-30.0) sec Chloride 115 H (98-107) mmol/L Carbon Dioxide 16 L (22-30) mmol/L Glucose 122 H (74-99) mg/dL Troponin I 0.055 H* (0.000-0.034) ng/mL Urine Blood (Negative) Urine Mucus (None) /hpf 01/09/24 01/09/24 01/09/24 Range/Units 02:30 02:55 08:29 WBC (3.8-10.6) k/uL Neutrophils # (1.3-7.7) k/uL APTT 35.7 H (22.0-30.0) sec Chloride (98-107) mmol/L Carbon Dioxide (22-30) mmol/L Glucose (74-99) mg/dL Troponin I 0.073 H* (0.000-0.034) ng/mL Urine Blood Trace H (Negative) Urine Mucus Rare H (None) /hpf Assessment and Plan Time with Patient: Less than 30
[2024-01-09] MEDS: SODIUM CHLORIDE 0.9% 1,000 ML in EMPTY BAG 1 BAG IV SCH (16:52)
[2024-01-09] MEDS: METOPROLOL TARTRATE 50 MG TAB PO SCH (21:13)
[2024-01-09] MEDS: APIXABAN 2.5 MG TABLET PO SCH (21:13)
[2024-01-09 22:40] VITALS: RESP 16
[2024-01-10] MEDS: LEVOTHYROXINE 75 MCG TAB PO SCH (06:39)
[2024-01-10] MEDS ORDERED: HEPARIN SODIUM,PORCINE 10,000 UNIT in SODIUM CHLORIDE 0.9% 1,000 ML IRRIGATION PRN (07:00)
[2024-01-10] MEDS ORDERED: HEPARIN SODIUM,PORCINE (1 ML) 2,500 UNIT in SODIUM CHLORIDE 0.9% 250 ML IRRIGATION PRN (07:00)
--- NOTE | 2024-01-10 07:24 | CA ---
Transthoracic Echo Report Name: Yola Strauss Age: 83 Gender: F : 1940 Exam Date: 01/09/2024 15:38 Exam Location: [facility] Ht (in): 63 Wt (lb): 120 Ordering Physician: Irene Dias Attending/Referring Phys: [id number], Larissa Valve Lapper Layne Nieves RDCS Procedure CPT: Indications: LV function, new onset afib Cardiac Hx: Technical Quality: Fair Contrast 1: Total Dose (mL): Contrast 2: Total Dose (mL): MEASUREMENTS (Male / Female) Normal Values 2D ECHO LV Diastolic Diameter PLAX 3.1 cm 4.2 - 5.9 / 3.9 - 5.3 cm LV Systolic Diameter PLAX 2.5 cm IVS Diastolic Thickness 1.6 cm 0.6 - 1.0 / 0.6 - 0.9 cm LVPW Diastolic Thickness 1.3 cm 0.6 - 1.0 / 0.6 - 0.9 cm LV Relative Wall Thickness 0.9 LA Volume 91.0 cm??? 18 - 58 / 22 - 52 cm??? LA Volume Index 58.4 cm???/m??? 16 - 28 cm???/m??? M-MODE Aortic Root Diameter MM 2.8 cm LA Systolic Diameter MM 4.9 cm LA Ao Ratio MM 1.7 AV Cusp Separation MM 1.4 cm DOPPLER AV Peak Velocity 132.2 cm/s AV Peak Gradient 7.0 mmHg AV Mean Velocity 86.0 cm/s AV Mean Gradient 3.3 mmHg AV Velocity Time Integral 21.3 cm LVOT Peak Velocity 94.3 cm/s LVOT Peak Gradient 3.6 mmHg LVOT Velocity Time Integral 12.2 cm MV Area PHT 4.5 cm??? Mitral E Point Velocity 138.6 cm/s Mitral A Point Velocity 1.5 cm/s Mitral E to A Ratio 89.6 MV Deceleration Time 169.3 ms TR Peak Velocity 262.0 cm/s TR Peak Gradient 27.5 mmHg Right Ventricular Systolic Press 31.6 mmHg FINDINGS Left Ventricle Moderately increased left ventricular wall thickness. Left ventricular cavity size normal. Reduced global left ventricular systolic function. Left ventricular ejection fraction is estimated at 40 %. Right Ventricle Normal right ventricular size and function. Mild pulmonary hypertension. Right Atrium Mild right atrial dilatation. Left Atrium Severely increased left atrial volume. Mildly increased left atrial area. Mitral Valve Structurally normal mitral valve. Mitral valve thickened. Mild mitral annular calcification. [id number] mitral regurgitation. Aortic Valve Trileaflet aortic valve. No aortic valve stenosis or regurgitation. Aortic valve sclerosis. Tricuspid Valve Structurally normal tricuspid valve. Mild tricuspid regurgitation. Pulmonic Valve Structurally normal pulmonic valve. Pericardium No pericardial effusion. Aorta Normal size aortic root and proximal ascending aorta. CONCLUSIONS Technically difficult study for interpretation The LV systolic function is probably around 40% [id number] mitral regurgitation Previewed by: Dr. Isaak Edwards MD (Electronically Signed) Final Date: 10 Jan 2024 07:23
[2024-01-10 08:58] VITALS: BP 150/78; PULSE 62; TEMP 98.2
[2024-01-10] MEDS: FOLIC ACID 1 MG TAB PO SCH (09:06)
[2024-01-10] MEDS: CYANOCOBALAMIN 500 MCG TAB PO SCH (09:06)
[2024-01-10] MEDS: CHOLECALCIFEROL 25 MCG (1000 IU) TABLET PO SCH (09:06)
[2024-01-10] MEDS: FERROUS SULFATE 325 MG TAB PO SCH (09:06)
[2024-01-10 10:26] LABS: Basophils # (A) 0.04 X 10*3/uL (0.00-0.10); Basophils % (A) 0.3 %; Eosinophils # (A) 0.16 X 10*3/uL (0.04-0.35); Eosinophils % (A) 1.3 %; HCT 43.7 % (37.2-46.3); HGB 14.2 g/dL (12.0-15.0); Lymphocytes # (A) 2.12 X 10*3/uL (0.90-5.00); Lymphocytes % (A) 17.4 %; MCH 30.1 pg (27.0-32.0); MCHC 32.5 g/dL (32.0-37.0); MCV 92.6 FL (80.0-97.0); Mean Platelet Volume 10.6 FL (9.5-12.2); Monocytes # (A) 1.19 X 10*3/uL (0.20-1.00); Monocytes % (A) 9.8 %; NRBC Per 100 WBC 0 X 10*3/uL (0.00-0.01); Neutrophils # (A) 8.55 X 10*3/uL (1.80-7.70); Neutrophils % (A) 70.4 %; Platelet Count 408 X 10*3/uL (140-440); RBC 4.72 X 10*6/uL (4.10-5.20); RDW 14.4 % (11.5-14.5); WBC 12.16 X 10*3/uL (4.50-10.00)
[2024-01-10 11:12] LABS: INR 1.11 sec (0.93-1.11); Prothrombin Time 11.9 sec (9.9-11.9)
[2024-01-10 11:38] LABS: BUN/Creat Ratio 12.86 Ratio (12.00-20.00); Calcium 9.2 mg/dL (8.7-10.3); Carbon Dioxide 18.9 mmol/L (21.6-31.8); Chloride 110 mmol/L (96-109); Glucose 115 mg/dL (70-110); Potassium 3.8 mmol/L (3.5-5.5); Sodium 143 mmol/L (135-145)
--- NOTE | 2024-01-10 12:02 | P.PN ---
Subjective Progress Note Date: 01/10/24 HISTORY OF PRESENT ILLNESS: This is a 83-year-old female with a past medical history significant for br onchitis, hypertension, and hypothyroidism. 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 We have been asked to see the patient in consultation for new onset atrial fibrillation and elevated troponins. Patient examined at the bedside in the emergency room. Patient states that she had bronchitis about 2 weeks ago. She states that she recently went to her PCP and was prescribed steroids and antibiotics as she felt her bronchitis was not getting better. She states that she still has a cough but no fever. She states that yesterday she just overall felt unwell. She reports feeling weak. She denied having any chest pain or pressure. She reports feeling palpitations yesterday for the first time. She states she did not feel dizzy or lightheaded. The patient presented to the hospital for further evaluation. The patient was found to be in new onset atrial fibrillation with RVR. The patient denies a history of atrial fibrillation. The patient was started on IV heparin and IV Cardizem. At the time of examination, the patient remains in atrial fibrillation with controlled ventricular rate. DIAGNOSTICS: - EKG reveals A-fib with RVR. - Chest xray right lower lobe airspace opacities correlate for developing pneumonia. - Laboratory data: WBC 13.4. Hemoglobin 14.1. Platelet count 339. Sodium 143. Potassium 4.2. BUN 12. Creatinine 0.57. Magnesium 2.1. Troponin 0.055. 0.073. 0.067. TSH 4.050. - Current home cardiac medications include losartan 25 mg daily. - No previous echocardiogram, stress test, or cardiac catheterization available in EMR for review 01/09 Yesterday, patient was taken off IV Cardizem and started on metoprolol and also started on Eliquis. Patient underwent cardiac catheterization with Dr. Vargas which revealed mild obstructive disease in the mid LAD and proximal left circumflex. No obstructive disease in the RCA. Right dominance. Normal LVEDP. Echocardiogram reveals EF of 40%. Mild to moderate mitral regurgitation. Technically difficult study for interpretation. Reviewed results of testing with the patient. She remains in atrial fibrillation. Her heart rate is currently controlled in the 90s to 100 range. PHYSICAL EXAM: VITAL SIGNS: Reviewed. GENERAL: Well-developed in no acute distress. HEENT: Head is normocephalic. Pupils are equal, round. Sclerae anicteric. Mucous membranes of the mouth are moist. Neck supple. No JVD or thyromegaly LUNGS: Respirations even and unlabored. Lungs essentially clear to auscultation bilaterally. HEART: Irregular rate and rhythm. S1 and S2 heard. EXTREMITIES: No clubbing or cyanosis. Peripheral pulses intact. No lower extremity edema. Right wrist shows strong pulse, no hematoma. NEUROLOGIC: Awake and alert. Oriented x 3. ASSESSMENT: Recent diagnosis of bronchitis Right lower lobe opacity, possible pneumonia New onset atrial fibrillation with RVR Elevated troponins, flat, may be secondary to A-fib with RVR, ruled out obstructive CAD Hypertension Hypothyroidism PLAN: Continue current cardiac medications Patient is cleared for discharge from cardiology May follow-up with Dr. Vargas in 1 to 2 weeks. Nurse practitioner note has been reviewed by physician. Signing provider agrees with the documented findings, assessment, and plan of care documented by PRE SALES NETWORK ENGINEER as a scribe. Objective - Vital Signs Vital signs: Vital Signs Temp 98.2 F 01/10/24 08:00 Pulse 62 01/10/24 08:00 Resp 16 01/10/24 09:06 BP 150/78 01/10/24 08:00 Pulse Ox 95 01/10/24 08:00 FiO2 Intake & Output 01/09/24 01/10/24 01/10/24 18:59 06:59 18:59 Intake Total 318 Balance 318 Weight 54.431 kg 51.8 kg Intake: IV 200 Oral 118 Other: Voiding Method Toilet # Voids 2 - Labs CBC & Chem 7: 01/10/24 07:40 01/10/24 07:40 Labs: Abnormal Lab Results - Last 24 Hours (Table) 01/09/24 Range/Units 08:29 Troponin I 0.067 H* (0.000-0.034) ng/mL
[2024-01-11] MEDS ORDERED: PANTOPRAZOLE 40 MG TABLET PO SCH (07:30)
--- NOTE | 2024-01-12 09:23 | P.DS ---
Providers Date of admission: 01/09/24 01:01 Attending physician: Jose Cabrera Consults: 01/09/24 00:57 Consult Physician Urgent Consulting Provider: [facility] Consult Reason/Comments: new onset afib with rvr Do you want consulting provider notified?: Yes Primary care physician: Cruz Tuttle [facility] Course: Final Diagnosis -New onset atrial fibrillation with rapid ventricular rate patient is now rate controlled -Troponin elevation felt to be due to the atrial fibrillation patient underwent cardiac catheterization which reveals mild nonobstructive coronary artery disease -Hypothyroidism continues on same home dose of levothyroxine, TSH has been checked and is in normal limits at this time -Recent diagnosis of tracheobronchitis completed course of oral azithromycin and prednisone taper. Discharge Disposition Patient is stable for discharge home. Has been started on eliquis 5 mg BID and also metoprolol BID on discharge. Patient will be managed medically for the mild nonobstructive coronary artery disease. Patient to follow up with cardiology in 1 to 2 weeks on discharge. Recommending to repeat BMP and CBC in 2 to 3 days on discharge and also follow up with PCP Dr. Cruz Tuttle in 1 to 2 days. Hospital Course This is a pleasant 83-year-old female with medical history significant for hypothyroidism, occasional alcohol use 1 glass of wine here and there. Patient comes into the hospital with complaints of palpitations which started yesterday she is not having any chest pain or shortness of breath. States that she checks her blood pressure and heart rate at home and she is never abnormal however when she began feeling the palpitations she checked her vital signs and noted that her heart rate was 180 at home so she came into the hospital for further evaluation. She was recently treated on an outpatient basis for bronchitis and completed a course of oral azithromycin and oral prednisone. She still has some residual cough but is not having any fever chills and states that the bronchitis is essentially ran its course. She is not having any nausea vomiting or diarrhea and she denies any dizziness or lightheadedness. EKG on admission shows atrial fibrillation with rapid ventricular rate. Patient was admitted to the hospital under medicine with a consult placed to cardiology services. Her troponin level has been elevated at 0.055 and 0.073. Her TSH was normal at 4.050. Her glucose level was 122 she had a mild elevated white count at 13.4 but noted that she has recently been on prednisone this last week. Patient's urinalysis is not suggestive of any infection shows trace blood with rare urine mucus. Patient was started on IV cardizem and IV heparin. Patient underwent cardiac catheterization with Dr. Vargas which revealed mild obstructive disease in the mid LAD and proximal left circumflex. No obstructive disease in the RCA. Right dominance. Normal LVEDP. Echocardiogram reveals EF of 40%. Mild to moderate mitral regurgitation. Technically difficult study for interpretation. Heart rate is now controlled and has been taken off the cardizem gtt. Patient is transitioned to metoprolol and heart rate is now controlled although patient remains in atrial fibrillation. Was started on anticoagulation. Patient has no reports of chest pain, no shortness of breath, no nausea vomiting or diarrhea. Alert x 3 and no focal neurological deficits. Patient will be discharge home. Please see medication reconciliation for a list of current medications. Thank you for allowing us to participate in the care of this patient. The impression and plan of care has been dictated by Deanna Storey, Nurse Practitioner as directed. Dr. Gunnar MD I have performed a history and physical examination and medical decision making of this patient, discussed the same with the dictator, and agree with the dictators assessment and plan as written, documented as a scribe. Based on total visit time, I have performed more than 50% of this visit. Patient Condition at Discharge: Stable Plan - Discharge Summary New Discharge Prescriptions: New Apixaban [Eliquis] 2.5 mg PO BID #60 tab Metoprolol Tartrate [Lopressor] 50 mg PO BID #60 tab Pantoprazole [Protonix] 40 mg PO AC-BRKFST #30 tab Continue Vit C/E/Zn/Coppr/Lutein/Zeaxan [Preservision Areds 2 Softgel] 2 cap PO DAILY Levothyroxine Sodium [Synthroid] 150 mcg PO QAM Cyanocobalamin (Vitamin B-12) [Vitamin B-12] 1,000 mcg PO DAILY Multivit with Calcium,Iron,Min [Women's Multivitamin] 1 tab PO DAILY Ferrous Sulfate [Iron (65 MG Elemental)] 325 mg PO DAILY Cholecalciferol [Vitamin D3 (25 Mcg = 1000 Iu)] 25 mcg PO DAILY predniSONE [Deltasone] 20 mg PO DAILY Losartan [Cozaar] 25 mg PO DAILY Folic Acid 1 mg PO DAILY Discontinued Azithromycin [Zithromax Z Pack] See Taper PO DIRECTED Discharge Medication List Levothyroxine Sodium [Synthroid] 150 mcg PO QAM 05/18/16 [History] Vit C/E/Zn/Coppr/Lutein/Zeaxan [Preservision Areds 2 Softgel] 2 cap PO DAILY 05/18/16 [History] Cholecalciferol [Vitamin D3 (25 Mcg = 1000 Iu)] 25 mcg PO DAILY 01/09/24 [History] Cyanocobalamin (Vitamin B-12) [Vitamin B-12] 1,000 mcg PO DAILY 01/09/24 [History] Ferrous Sulfate [Iron (65 MG Elemental)] 325 mg PO DAILY 01/09/24 [History] Folic Acid 1 mg PO DAILY 01/09/24 [History] Losartan [Cozaar] 25 mg PO DAILY 01/09/24 [History] Multivit with Calcium,Iron,Min [Women's Multivitamin] 1 tab PO DAILY 01/09/24 [History] predniSONE [Deltasone] 20 mg PO DAILY 01/09/24 [History] Apixaban [Eliquis] 2.5 mg PO BID #60 tab 01/10/24 [Rx] Metoprolol Tartrate [Lopressor] 50 mg PO BID #60 tab 01/10/24 [Rx] Pantoprazole [Protonix] 40 mg PO AC-BRKFST #30 tab 01/10/24 [Rx] Follow up Appointment(s)/Referral(s): Fredy Vargas MD [STAFF PHYSICIAN] - 1 Week (office will call patient with appointment ) Cruz Tuttle MD [Primary Care Provider] - 1-2 days Ambulatory/Diagnostic Orders: Basic Metabolic Panel [LAB.AMB] Location: None Selected Complete Blood Count w/diff [LAB.AMB] Time Frame: 3 Days, Location: None Selected Patient Instructions/Handouts: Heart Catheterization (DC), After Radial Heart Catheterization (GEN) Activity/Diet/Wound Care/Special Instructions: No flexing at the wrist or lifting anything heavier than 5 pounds for 5 days. Do not submerge wrist in water for 3 days. If site bleeds, hold pressure for 10min if doesn't subside, have someone drive you to ER. Call or return to ER for numbness, color or temperature change to Right arm. see infection handout...SSI RETURN TO ER FOR WORSENING SYMPTOMS, PROBLEMS, OR CONCERNS. Discharge Disposition: HOME SELF-CARE
== END 2024-01-10 12:02 | disposition home or self-care (01) ==
LOC: EC 21:06 → 3SCARD 01-09 01:01 → 6NMEDSUR 01-09 10:55
PROVIDERS: ADMIT Hospitalist; ATTEND Hospitalist
DX: I25.10 Atherosclerotic heart disease of native coronary artery without angina pectoris (principal); I48.91 Unspecified atrial fibrillation; R79.89 Other specified abnormal findings of blood chemistry; J40 Bronchitis, not specified as acute or chronic; I10 Essential (primary) hypertension; E03.9 Hypothyroidism, unspecified; R91.8 Other nonspecific abnormal finding of lung field; Z79.890 Hormone replacement therapy
CPT/HCPCS: 96365; 96366; 99285; 36415; 93005; 93306; 93458; 80053; 80048; 84443; 83735; 84484 ×2; 85025 ×2; 85610 ×2; 85730 ×2; 81001; 84145; 71046; G0378 ×3; C1769 ×2; C1894; J2001; J1644 ×2; J3010

== ENCOUNTER → 2024-03-19 | Day surgery (SDC) | payer BC, MEDICARE ==
[2024-03-18 08:44] VITALS: BMI 21.2
[~2024-03-19] MED LIST: LACTATED RINGERS 1,000 ML IV SCH; LIDOCAINE 1% INJ 10MG/ML (20 ML MDV) ONE; PROPOFOL 10 MG/ML 20 ML VIAL IV ONE
[2024-03-19] MEDS: SODIUM CHLORIDE 0.9% 1,000 ML IV SCH (06:20)
[2024-03-19] MEDS: IV FLUID CONTINUATION 1,000 ML IV ONE (06:20)
[2024-03-19 06:29] VITALS: RESP 16; TEMP 98
[2024-03-19 06:49] LABS: Basophils % (A) 0 %; Eosinophils # (A) 0.2 k/uL (0-0.7); Eosinophils % (A) 2 %; HCT 43.5 % (34.0-46.0); HGB 13.4 gm/dL (11.4-16.0); Lymphocytes # (A) 1.2 k/uL (1.0-4.8); Lymphocytes % (A) 14 %; MCH 30.5 pg (25.0-35.0); MCHC 30.9 g/dL (31.0-37.0); MCV 98.9 fL (80.0-100.0); Mean Platelet Volume 8.9; Monocytes # (A) 0.6 k/uL (0-1.0); Monocytes % (A) 8 %; Neutrophils # (A) 6.3 k/uL (1.3-7.7); Neutrophils % (A) 74 %; Platelet Count 235 k/uL (150-450); RBC 4.39 m/uL (3.80-5.40); RDW 13.5 % (11.5-15.5); WBC 8.5 k/uL (3.8-10.6)
[2024-03-19 06:53] LABS: ALT 41 U/L (4-34); AST 49 U/L (14-36); African American GFR (CKD) 82 (>60 ml/min/1.73 sqM); Albumin 3.7 g/dL (3.5-5.0); Alkaline Phosphatase 69 U/L (38-126); Anion Gap 10 mmol/L; Blood Urea Nitrogen 18 mg/dL (7-17); Calcium 8.8 mg/dL (8.4-10.2); Carbon Dioxide 22 mmol/L (22-30); Chloride 109 mmol/L (98-107); Glucose 115 mg/dL (74-99); Non-African American GFR(CKD) 71 (>60 ml/min/1.73 sqM); Potassium 4.3 mmol/L (3.5-5.1); Sodium 141 mmol/L (137-145); Total Bilirubin 0.4 mg/dL (0.2-1.3); Total Protein 6.4 g/dL (6.3-8.2)
--- NOTE | 2024-03-19 07:31 | P.HPCAR ---
History of Present Illness This is Dr. 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 daily for 1 month prior TSH 29 PLAN: Electrical cardioversion today Reduce the dose of amiodarone to 200 mg once daily Adjust the dose of metoprolol according to heart rate in sinus rhythm Continue anticoagulation 5 mg twice daily of Eliquis for 2 weeks and then reduce the dose down to 2.5 mg twice daily HPI Patient remains symptomatic with tiredness fatigue and shortness of breath Denies any orthopnea PND today denies any dizziness chest pain No fever chills cough expectoration She has been on amiodarone 4 mg daily for 1 month and in the last 1 week hide increase the dose of Eliquis to 5 mg twice daily ROS: No fever chills or rigors, no cough, phlegm or expectoration, no nausea, vomiting or diarrhea, no hematuria, dysuria, no musculoskeletal complaints, no strokes or seizures, no skin lesions. EXAMINATION: Blood pressure 149/97, pulse rate in the 80s irregular afebrile Breath sounds are reduced No rhonchi no crackles Rhythm is irregular rates are controlled at rest no murmurs No JVD REVIEW OF LABS, ECG & MEDICAL DATA Normal white count normal hemoglobin of 13.4, normal platelet count 235,000 Electrolytes normal with normal sodium of 141 and potassium 4.3 BUN 18 creatinine 0.78 AST and ALT minimally increased TSH 29.1 Physical Exam Vitals: Vital Signs Temp Pulse Resp BP Pulse Ox 03/19/24 06:27 98.0 F 80 16 149/97 96 Intake and Output 03/18/24 03/19/24 03/19/24 22:59 06:59 14:59 Intake Total 0 Balance 0 Intake: IV 0 Other: Weight 53.6 kg Past Medical History Past Medical History: Atrial Fibrillation, Heart Failure, Hyperlipidemia, Hypertension, Thyroid Disorder Additional Past Medical History / Comment(s): SEE DR. GROVES'S H&P History of Any Multi-Drug Resistant Organisms: None Reported Past Surgical History: Tubal Ligation Additional Past Surgical History / Comment(s): COLONOSCOPY Past Anesthesia/Blood Transfusion Reactions: No Reported Reaction Additional Past Anesthesia/Blood Transfusion Reaction / Comment(s): . Past Psychological History: No Psychological Hx Reported Smoking Status: Never smoker Past Alcohol Use History: Rare Past Drug Use History: None Reported Physical Examination Vital Signs Temp Pulse Resp BP Pulse Ox 03/19/24 06:27 98.0 F 80 16 149/97 96 Intake and Output 03/18/24 03/19/24 03/19/24 22:59 06:59 14:59 Intake Total 0 Balance 0 Intake: IV 0 Other: Weight 53.6 kg Results 03/19/24 06:20 03/19/24 06:20 Cardiac Enzymes 03/19/24 Range/Units 06:20 AST 49 H (14-36) U/L CBC 03/19/24 Range/Units 06:20 WBC 8.5 (3.8-10.6) k/uL RBC 4.39 (3.80-5.40) m/uL Hgb 13.4 (11.4-16.0) gm/dL Hct 43.5 (34.0-46.0) % Plt Count 235 (150-450) k/uL Comprehensive Metabolic Panel 03/19/24 Range/Units 06:20 Sodium 141 (137-145) mmol/L Potassium 4.3 (3.5-5.1) mmol/L Chloride 109 H (98-107) mmol/L Carbon Dioxide 22 (22-30) mmol/L BUN 18 H (7-17) mg/dL Creatinine 0.78 (0.52-1.04) mg/dL Glucose 115 H (74-99) mg/dL Calcium 8.8 (8.4-10.2) mg/dL AST 49 H (14-36) U/L ALT 41 H (4-34) U/L Alkaline Phosphatase 69 (38-126) U/L Total Protein 6.4 (6.3-8.2) g/dL Albumin 3.7 (3.5-5.0) g/dL Current Medications Generic Name Dose Route Start Last Admin Trade Name Freq PRN Reason Stop Dose Admin Sodium Chloride 1,000 mls @ 20 mls/hr 03/19/24 05:39 03/19/24 06:20 Saline 0.9% IV 04/18/24 05:40 20 mls/hr .Q24H MARILEE Administration Lactated Ringer's 1,000 mls @ 20 mls/hr 03/19/24 05:39 Lactated Ringers IV 04/18/24 05:40 .Q24H MARILEE Intake and Output 03/18/24 03/19/24 03/19/24 22:59 06:59 14:59 Intake Total 0 Balance 0 Intake: IV 0 Other: Weight 53.6 kg 03/19/24 06:20 03/19/24 06:20
[2024-03-19 09:35] VITALS: BP 130/66; PULSE 44
--- NOTE | 2024-04-07 14:19 | P.EPPROC ---
- EP Procedure Note Electrophysiology Procedure Note: Procedure Electrical cardioversion for persistent symptomatic atrial fibrillation associated with cardiomyopathy TSH 29.1 Currently on amiodarone 400 mg p.o. daily with a minimally abnormal SGOT and SGPT Metoprolol held this morning For the last 1 week the dose of Eliquis was increased to 5 mg twice daily Details Successful electrical cardioversion with a 200 J shock to sinus rhythm Postconversion, immediately the heart rates were in the high 40s Plan Reduce amiodarone to 100 mg daily Take the higher dose of Eliquis 5 mg twice daily for the next 2 weeks and then back down to 2.5 mg twice daily thereafter Increase the dose of levothyroxine to 200 mcg p.o. daily Recheck TSH in 8 weeks Hold metoprolol until follow-up transfer to Follow-up Holter monitor for 2 weeks 2D echo and Doppler study to reassess LV function in the next 6 to 8 weeks
== END | disposition home or self-care (01) ==
LOC: CATHEP 05:37
PROVIDERS: ATTEND Internal Medicine Clinical Cardiac Electrophysiology
DX: I48.19 Other persistent atrial fibrillation (principal); I42.0 Dilated cardiomyopathy; I25.10 Atherosclerotic heart disease of native coronary artery without angina pectoris; I11.0 Hypertensive heart disease with heart failure; I50.23 Acute on chronic systolic (congestive) heart failure; E03.9 Hypothyroidism, unspecified; E78.5 Hyperlipidemia, unspecified; Z79.890 Hormone replacement therapy; Z79.01 Long term (current) use of anticoagulants; Z79.899 Other long term (current) drug therapy
CPT/HCPCS: 92960; 80053; 84443; 85025; J2001; J2704

== ENCOUNTER → 2024-06-28 | Outpatient (CLI) | payer MEDICARE ==
--- NOTE | 2024-07-02 09:29 | MM ---
Reason for Exam: Screening (asymptomatic). Last screening mammogram was performed 12 month(s) ago. Patient History: Menarche at age 16. First Full-Term at age 20. Postmenopausal. Risk Values: Kaylene 5 year model risk: 1.0%. NCI Lifetime model risk: 1.2%. Prior Study Comparison: 06/15/2021 Bilateral Screening Mammogram, [facility]. 06/20/2022 Bilateral MG 3D screening mammo w/cad, [facility]. 06/21/2023 Bilateral MG 3D screening mammo w/cad, [facility]. Tissue Density: The breasts are heterogeneously dense, which may obscure small masses. Findings: Analyzed By CAD. There is no suspicious group of microcalcifications or new suspicious mass in either breast. Overall Assessment: Benign, BI-RAD 2 Management: Screening Mammogram of both breasts in 1 year. . Patient should continue monthly self-breast exams. A clinical breast exam by your physician is recommended on an annual basis. This exam should not preclude additional follow-up of suspicious palpable abnormalities. Note on Kaylene scores and lifetime risk: 1. A Kaylene score greater than 3% is considered moderate risk. If this is the case, consider specialist referral to assess eligibility for a risk reducing agent. 2. If overall lifetime risk for the development of breast cancer is 20% or higher, the patient may qualify for future screening with alternating mammogram and breast MRI. [facility], , 07/02/2024 9:25 AM. Electronically signed and approved by: Jad Waters M.D. Radiologis
== END | disposition home or self-care (01) ==
LOC: RADMAMWWP 11:46
PROVIDERS: ATTEND Family Medicine
CPT/HCPCS: 77063; 77067